=== PATIENT | female | born 1970 | race Asian ===

== ENCOUNTER 2017-01-09 14:46 | Day surgery (SDC) | payer OTHER ==
[~2017-01-09] VITALS: Ht 157.5 cm; Wt 64.9 kg
[~2017-01-09 14:46] MED LIST: HYDR-3498 PO; IBUP400T22 PO
[2017-01-09] MEDS ORDERED: ASPI1TAB21 PO (15:32)
[2017-01-09] MEDS ORDERED: IRON PO (15:32)
[2017-01-09] MEDS ORDERED: MVI PO (15:32)
[2017-01-09] MEDS ORDERED: VITAMIN D3 PO (15:32)
[2017-01-09 15:43] VITALS: Ht 157.5 cm; Wt 64.9 kg
[2017-01-09 15:50] VITALS: BP 122/69; PULSE 54; RESP 24
[2017-01-09] MEDS ORDERED: LIDOCAINE 4% SOLUTION 50 ML BTL ONE (15:55)
[2017-01-09] MEDS ORDERED: MEPERIDINE 50 MG INJ ONE (16:44)
[2017-01-09 16:50] VITALS: BP 108/61; PULSE 50; RESP 12
--- NOTE | 2017-01-13 08:11 | GILP ---
DATE OF PROCEDURE: 01/09/2017 PREOP DIAGNOSIS: Is abdominal pain, mostly in the epigastric area. PROCEDURE PERFORMED: Esophagogastroduodenoscopy with biopsy. POSTOP DIAGNOSES: 1. Nodular mucosa in the body of the stomach, looks like fundic gland. 2. Normal esophagus, normal duodenum. DESCRIPTION OF PROCEDURE: The patient was put in left lateral decubitus. As she had some kind of reaction to Diprivan, the patient was given only Demerol 75 mg. Posterior pharynx anesthetized with 4 percent Xylocaine. Advanced an Olympus video upper endoscope into the esophagus, stomach and duodenum. Examination demonstrated normal esophagus, normal duodenum up to second part, but in the body of the stomach, there was nodularity. These looked like fundic glands, however, photography and biopsy done. Random biopsy also done to rule out any H pylori. The endoscope was withdrawn. Prior to that, fundus was re-examined by retroflexion, which was normal. The esophagus was normal on the way out. IMPRESSION: Nodular mucosa in the body of the stomach most likely fundic glands. PLAN: Follow up as outpatient. Await for biopsy report. Dictated By: Damon Gonzales MD /[email or web address] /Document#: [id number]
== END 2017-01-09 18:02 | disposition home or self-care (01) ==
LOC: GIL 14:46
PROVIDERS: ATTEND Internal Medicine
DX: K31.7 Polyp of stomach and duodenum (principal)
CPT/HCPCS: 43239; 84703; 88305; J2175; Z7610